=== PATIENT | male | born 1970 | race Caucasian/White ===

== ENCOUNTER 2021-07-12 09:22 | Emergency (ER) | payer BC ==
[~2021-07-12] VITALS: Ht 172.7 cm; Wt 70.3 kg
== END 2021-07-12 14:45 | disposition home or self-care (01) ==
LOC: ER1 09:22
DX: Z23 Encounter for immunization (principal); U07.1 COVID-19; E11.9 Type 2 diabetes mellitus without complications; Z90.49 Acquired absence of other specified parts of digestive tract
CPT/HCPCS: 99283; M0243; U0002